=== PATIENT | male | born 1955 | race Caucasian/White ===

== ENCOUNTER → 2017-05-01 | Outpatient (CLI) | payer MEDICARE, OTHER ==
[~2017-05-01] MED LIST: ALBU8HFA4 IH; ATOR20TA86 PO; AUD NEB; ESCI10TA PO; FLUT16H NASAL; HYDR25TA PO; LOSA1TAB42 PO; METF500T4 PO; MULT1CAP32 PO; OMEP20 PO; TAMS0.4C32 PO; TRAZ-144 PO; VITAD1000 PO
[2017-05-01 12:49] VITALS: BP 95/61
== END | disposition home or self-care (01) ==
LOC: SRCNTR 12:32
PROVIDERS: ATTEND Internal Medicine Critical Care Medicine
DX: G47.33 Obstructive sleep apnea (adult) (pediatric) (principal); E66.01 Morbid (severe) obesity due to excess calories; E11.9 Type 2 diabetes mellitus without complications; I10 Essential (primary) hypertension; N40.0 Benign prostatic hyperplasia without lower urinary tract symptoms; J44.9 Chronic obstructive pulmonary disease, unspecified; Z91.19 Patient's noncompliance with other medical treatment and regimen
CPT/HCPCS: G0463

== ENCOUNTER → 2017-10-02 | Outpatient (CLI) | payer MEDICARE, OTHER ==
[~2017-10-02] VITALS: Ht 180.3 cm; Wt 159.5 kg
[~2017-10-02] MED LIST changes: +ASPI81 PO; -ESCI10TA PO; -HYDR25TA PO; -METF500T4 PO; +METF500T6 PO; -TRAZ-144 PO; +TRAZ-219 PO
[2017-10-02 12:42] VITALS: BP 130/86
== END | disposition home or self-care (01) ==
LOC: SRCNTR 12:39
PROVIDERS: ATTEND Internal Medicine Critical Care Medicine
DX: J44.9 Chronic obstructive pulmonary disease, unspecified (principal); I10 Essential (primary) hypertension; E11.9 Type 2 diabetes mellitus without complications; E66.09 Other obesity due to excess calories; G47.33 Obstructive sleep apnea (adult) (pediatric); Z91.19 Patient's noncompliance with other medical treatment and regimen; N40.0 Benign prostatic hyperplasia without lower urinary tract symptoms
CPT/HCPCS: G0463

== ENCOUNTER → 2017-10-09 | Outpatient (CLI) | payer MEDICARE, OTHER ==
[~2017-10-09] VITALS: Ht 180.3 cm; Wt 160.0 kg
[~2017-10-09] MED LIST changes: +BUME1TAB17 PO; +DOCU250C91 PO; +MONT10TA21 PO
[2017-10-09 10:33] VITALS: BP 110/69
[2017-10-09 12:09] LABS: GLUCOMETER DEV NAME(LOC) SHC; GLUCOSE,POINT OF CARE 134 MG/DL (70-110)
== END | disposition home or self-care (01) ==
LOC: SRCNTR 10:29
PROVIDERS: ATTEND Hospitalist
DX: I11.0 Hypertensive heart disease with heart failure (principal); I50.9 Heart failure, unspecified; E11.65 Type 2 diabetes mellitus with hyperglycemia; E78.5 Hyperlipidemia, unspecified; E66.9 Obesity, unspecified; N40.1 Benign prostatic hyperplasia with lower urinary tract symptoms; G47.33 Obstructive sleep apnea (adult) (pediatric)
CPT/HCPCS: 82962; G0463

== ENCOUNTER 2017-10-28 10:42 | Emergency (ER) | payer MEDICARE, OTHER ==
[~2017-10-28] VITALS: Ht 180.3 cm; Wt 161.4 kg
[2017-10-28 11:26] LABS: BASOPHILS % (AUTO) 0.5 % (0.0-2.0); EOSINOPHILS % (AUTO) 0.2 % (1.0-6.0); HEMATOCRIT 39.6 % (41-53); HEMOGLOBIN 13.3 g/dL (13.5-17.5); LYMPHOCYTES # (AUTO) 1.6 K/uL (1.0-4.8); LYMPHOCYTES % (AUTO) 18.7 % (22.0-44.0); MEAN CORPUSCULAR HEMOGLOBIN 29.1 pg (26.0-34.0); MEAN CORPUSCULAR HGB CONC 33.7 G/dL (31.0-37.0); MEAN CORPUSCULAR VOLUME 86 fL (80-100); MONOCYTES # (AUTO) 0.8 K/uL (0.1-1.0); NEUTROPHILS # (AUTO) 6.3 K/uL (1.8-7.7); NEUTROPHILS % (AUTO) 71.6 % (40.0-70.0); PLATELET COUNT (AUTO) 264 K/uL (150-450); RED BLOOD CELL COUNT(AUTO) 4.58 MIL/uL (4.50-5.90); RED CELL DISTRIBUTION WIDTH 14.3 % (11.5-14.5)
[2017-10-28] MEDS ORDERED: ASPIRIN 81 MG CHEWABLE TABLET PO ONE (11:30)
[2017-10-28 11:40] LABS: ANION GAP 10 mmol/L (8-16); CALCIUM, TOTAL 8.6 mg/dL (8.8-10.5); CARBON DIOXIDE 29 mmol/L (22-29); CHLORIDE 101 mmol/L (98-107); CREATININE 0.95 mg/dL (0.60-1.30); GLOMERULAR FILTR. RATE CALC > 60 mL/min (>60); GLUCOSE,RANDOM 107 mg/dL (70-110); POTASSIUM 3.1 mmol/L (3.5-5.1); SODIUM SERUM 140 mmol/L (136-145); UREA NITROGEN, BLOOD 14 mg/dL (7-18)
[2017-10-28 11:43] LABS: ALANINE AMINOTRANSFERASE 20 U/L (12-78); ALBUMIN 3.2 g/dL (3.4-5.0); ALKALINE PHOSPHATASE 76 U/L (46-116); ASPARTATE AMINOTRANSFERASE 10 U/L (15-37); BILIRUBIN,TOTAL 0.5 mg/dL (0.1-1.0)
[2017-10-28 11:58] LABS: CREATINE KINASE, TOTAL 52 U/L (39-308)
[2017-10-28] MEDS ORDERED: ACETAMINOPHEN 500 MG TABLET PO ONE (12:45)
[2017-10-28] MEDS ORDERED: KETOROLAC TROMETHAMINE 30 MG/ML VIAL IM ONE (12:45)
[2017-10-28] MEDS ORDERED: POTASSIUM CHLORIDE 20 MEQ ER TABLET PO ONE (13:45)
[2017-10-28] MEDS ORDERED: ALBUTEROL SULFATE 5 MG/ML 20 ML NEB SOLN [BULK] NEB ONE (13:45)
[2017-10-28] MEDS ORDERED: IPRATROPIUM BROMIDE 0.5 MG/2.5 ML NEB SOLUTION NEB ONE (13:45)
[2017-10-28] MEDS ORDERED: 0.9% SODIUM CHLORIDE 15 ML NEB SOLUTION NEB ONE (14:35)
[2017-10-28 14:55] LABS: GLUCOSE,POINT OF CARE 106 MG/DL (70-110)
[2017-10-28 16:13] VITALS: BP 126/71
== END 2017-10-28 16:18 | disposition home or self-care (01) ==
LOC: EMS 10:43
DX: S20.212A Contusion of left front wall of thorax, initial encounter (principal); I11.0 Hypertensive heart disease with heart failure; I50.9 Heart failure, unspecified; J45.909 Unspecified asthma, uncomplicated; F41.9 Anxiety disorder, unspecified; F32.9 Major depressive disorder, single episode, unspecified; E11.9 Type 2 diabetes mellitus without complications; Z79.4 Long term (current) use of insulin; Z79.82 Long term (current) use of aspirin; Z79.899 Other long term (current) drug therapy; W05.0XXA Fall from non-moving wheelchair, initial encounter; Y93.89 Activity, other specified; Y92.89 Other specified places as the place of occurrence of the external cause; Y99.8 Other external cause status
CPT/HCPCS: 36415; 71045; 71101; 80053; 82550; 82962; 84484; 85025; 93005; 94644; 96372; 99285; J1885

== ENCOUNTER 2017-10-31 19:52 | Emergency (ER) | payer MEDICARE, OTHER ==
[~2017-10-31] VITALS: Ht 180.3 cm; Wt 161.0 kg
[2017-10-31 20:28] LABS: GLUCOSE,POINT OF CARE 96 MG/DL (70-110)
[2017-10-31 22:01] LABS: BASOPHILS % (AUTO) 1.1 % (0.0-2.0); EOSINOPHILS % (AUTO) 0.4 % (1.0-6.0); HEMATOCRIT 39.2 % (41-53); HEMOGLOBIN 13.1 g/dL (13.5-17.5); LYMPHOCYTES # (AUTO) 2.4 K/uL (1.0-4.8); LYMPHOCYTES % (AUTO) 26.8 % (22.0-44.0); MEAN CORPUSCULAR HEMOGLOBIN 29.1 pg (26.0-34.0); MEAN CORPUSCULAR HGB CONC 33.5 G/dL (31.0-37.0); MEAN CORPUSCULAR VOLUME 87 fL (80-100); MONOCYTES # (AUTO) 0.8 K/uL (0.1-1.0); MONOCYTES % (AUTO) 8.3 % (2.0-9.0); NEUTROPHILS # (AUTO) 5.7 K/uL (1.8-7.7); NEUTROPHILS % (AUTO) 63.4 % (40.0-70.0); PLATELET COUNT (AUTO) 282 K/uL (150-450); RED BLOOD CELL COUNT(AUTO) 4.51 MIL/uL (4.50-5.90); RED CELL DISTRIBUTION WIDTH 14.5 % (11.5-14.5)
[2017-10-31 22:10] LABS: CALCIUM, TOTAL 8.3 mg/dL (8.8-10.5); CREATININE 1.53 mg/dL (0.60-1.30); POTASSIUM 3.9 mmol/L (3.5-5.1)
[2017-10-31 22:33] VITALS: BP 138/77
== END 2017-10-31 22:40 | disposition home or self-care (01) ==
LOC: EMS 19:53
DX: R25.2 Cramp and spasm (principal); I11.0 Hypertensive heart disease with heart failure; I50.9 Heart failure, unspecified; E11.9 Type 2 diabetes mellitus without complications; J44.9 Chronic obstructive pulmonary disease, unspecified; F41.9 Anxiety disorder, unspecified; F32.9 Major depressive disorder, single episode, unspecified; Z79.84 Long term (current) use of oral hypoglycemic drugs; Z79.82 Long term (current) use of aspirin
CPT/HCPCS: 99284

== ENCOUNTER → 2017-12-18 | Outpatient (CLI) | payer MEDICARE, OTHER ==
[~2017-12-18] VITALS: Ht 180.3 cm; Wt 158.0 kg
[~2017-12-18] MED LIST changes: -ATOR20TA86 PO; -BUME1TAB17 PO; -DOCU250C91 PO; +METF-960 PO; -METF500T6 PO; -MONT10TA21 PO; -TRAZ-219 PO
[2017-12-18 11:45] VITALS: BP 139/78
[2017-12-18 15:59] LABS: GLUCOMETER DEV NAME(LOC) SHC; GLUCOSE,POINT OF CARE 114 MG/DL (70-110)
== END | disposition home or self-care (01) ==
LOC: SRCNTR 11:12
PROVIDERS: ATTEND Hospitalist
DX: E11.65 Type 2 diabetes mellitus with hyperglycemia (principal); I10 Essential (primary) hypertension; E66.9 Obesity, unspecified; E78.5 Hyperlipidemia, unspecified; N40.0 Benign prostatic hyperplasia without lower urinary tract symptoms; J45.909 Unspecified asthma, uncomplicated; G47.33 Obstructive sleep apnea (adult) (pediatric)
CPT/HCPCS: 82962; G0463

== ENCOUNTER → 2018-03-10 | Outpatient (CLI) | payer MEDICARE, OTHER ==
[2018-03-10 13:13] VITALS: BP 111/76
== END | disposition home or self-care (01) ==
LOC: SRCNTR 12:51
PROVIDERS: ATTEND Internal Medicine Critical Care Medicine
DX: G47.33 Obstructive sleep apnea (adult) (pediatric) (principal); J44.1 Chronic obstructive pulmonary disease with (acute) exacerbation; E11.9 Type 2 diabetes mellitus without complications; E66.01 Morbid (severe) obesity due to excess calories; J94.8 Other specified pleural conditions; N40.0 Benign prostatic hyperplasia without lower urinary tract symptoms; I11.0 Hypertensive heart disease with heart failure; I50.30 Unspecified diastolic (congestive) heart failure; Z91.19 Patient's noncompliance with other medical treatment and regimen
CPT/HCPCS: G0463

== ENCOUNTER → 2018-08-04 | Outpatient (CLI) | payer MEDICARE, OTHER | END | disposition home or self-care (01) | LOC: RESP 11:10 | PROVIDERS: ATTEND Internal Medicine Critical Care Medicine | DX: J44.1 Chronic obstructive pulmonary disease with (acute) exacerbation (principal); I51.7 Cardiomegaly; I70.0 Atherosclerosis of aorta ==

== ENCOUNTER → 2019-04-29 | Outpatient (CLI) | payer MEDICARE, OTHER ==
[~2019-04-29] VITALS: Ht 172.7 cm; Wt 155.0 kg
[~2019-04-29] MED LIST changes: +ASPI-728 PO; -ASPI81 PO; +CHOL100018 PO; +TAMS-13 PO; -TAMS0.4C32 PO; -VITAD1000 PO
[2019-04-29 11:13] VITALS: BP 114/78
== END | disposition home or self-care (01) ==
LOC: SRCNTR 11:09
PROVIDERS: ATTEND Internal Medicine Critical Care Medicine
DX: F32.9 Major depressive disorder, single episode, unspecified (principal); E11.9 Type 2 diabetes mellitus without complications; I10 Essential (primary) hypertension; J45.909 Unspecified asthma, uncomplicated; G47.33 Obstructive sleep apnea (adult) (pediatric); E66.01 Morbid (severe) obesity due to excess calories; R69 Illness, unspecified
CPT/HCPCS: G0463

== ENCOUNTER → 2019-10-26 | Outpatient (CLI) | payer MEDICARE, OTHER ==
[~2019-10-26] VITALS: Ht 180.3 cm; Wt 163.0 kg
[~2019-10-26] MED LIST changes: +BUDE10.2 IH; +GABA-1181 PO
[2019-10-26 11:32] VITALS: BP 132/72
== END | disposition home or self-care (01) ==
LOC: SRCNTR 11:24
PROVIDERS: ATTEND Internal Medicine Critical Care Medicine
DX: J43.9 Emphysema, unspecified (principal); I50.9 Heart failure, unspecified; E11.9 Type 2 diabetes mellitus without complications; I10 Essential (primary) hypertension; G47.33 Obstructive sleep apnea (adult) (pediatric)
CPT/HCPCS: G0463; Z7500

== ENCOUNTER → 2021-01-08 | Outpatient (CLI) | payer MEDICARE, OTHER ==
[~2021-01-08] MED LIST changes: -ALBU8HFA4 IH; +ASPI-1450 PO; -ASPI-728 PO; -FLUT16H NASAL; -METF-960 PO; -TAMS-13 PO
== END | disposition home or self-care (01) ==
LOC: RADPV 13:05
PROVIDERS: ATTEND Internal Medicine Critical Care Medicine
DX: I51.7 Cardiomegaly (principal); J44.9 Chronic obstructive pulmonary disease, unspecified
CPT/HCPCS: 71046

== ENCOUNTER → 2021-01-18 | Outpatient (CLI) | payer MEDICARE, OTHER | END | disposition home or self-care (01) | LOC: SRCNTR 13:55 | PROVIDERS: ATTEND Internal Medicine Critical Care Medicine | DX: G47.33 Obstructive sleep apnea (adult) (pediatric) (principal); J44.9 Chronic obstructive pulmonary disease, unspecified; E11.9 Type 2 diabetes mellitus without complications; I10 Essential (primary) hypertension; E66.01 Morbid (severe) obesity due to excess calories; J92.9 Pleural plaque without asbestos; Z91.19 Patient's noncompliance with other medical treatment and regimen | CPT/HCPCS: Q3014 ==

== ENCOUNTER → 2021-02-20 | Outpatient (CLI) | payer MEDICARE, OTHER ==
[2021-02-20 11:58] VITALS: BP 124/87
== END | disposition home or self-care (01) ==
LOC: SRCNTR 11:15
PROVIDERS: ATTEND Internal Medicine Critical Care Medicine
DX: G47.33 Obstructive sleep apnea (adult) (pediatric) (principal); J45.909 Unspecified asthma, uncomplicated; J92.9 Pleural plaque without asbestos; E11.9 Type 2 diabetes mellitus without complications; I10 Essential (primary) hypertension; E66.01 Morbid (severe) obesity due to excess calories; Z91.19 Patient's noncompliance with other medical treatment and regimen
CPT/HCPCS: G0463; Z7500

== ENCOUNTER → 2021-05-28 | Outpatient (CLI) | payer MEDICARE, OTHER ==
[2021-05-28 09:58] VITALS: BP 123/73
== END | disposition home or self-care (01) ==
LOC: SRCNTR 09:11
PROVIDERS: ATTEND Internal Medicine Critical Care Medicine
DX: I10 Essential (primary) hypertension (principal); J44.9 Chronic obstructive pulmonary disease, unspecified; E11.9 Type 2 diabetes mellitus without complications; G47.33 Obstructive sleep apnea (adult) (pediatric); N40.0 Benign prostatic hyperplasia without lower urinary tract symptoms; J30.2 Other seasonal allergic rhinitis; E66.01 Morbid (severe) obesity due to excess calories
CPT/HCPCS: G0463; Z7500

== ENCOUNTER → 2021-06-15 | Outpatient (CLI) | payer MEDICARE, OTHER ==
[2021-06-15 13:02] VITALS: BP 98/60
== END | disposition home or self-care (01) ==
LOC: SRCNTR 12:40
PROVIDERS: ATTEND Internal Medicine Critical Care Medicine
DX: I10 Essential (primary) hypertension (principal); E11.9 Type 2 diabetes mellitus without complications; G47.33 Obstructive sleep apnea (adult) (pediatric); N40.0 Benign prostatic hyperplasia without lower urinary tract symptoms; J30.2 Other seasonal allergic rhinitis; J92.9 Pleural plaque without asbestos; E66.01 Morbid (severe) obesity due to excess calories
CPT/HCPCS: G0463

== ENCOUNTER → 2021-09-07 | Outpatient (CLI) | payer MEDICARE, OTHER ==
[~2021-09-07] VITALS: Ht 180.3 cm; Wt 163.0 kg
[2021-09-07 09:17] VITALS: BP 98/76
== END | disposition home or self-care (01) ==
LOC: SRCNTR 08:37
PROVIDERS: ATTEND Internal Medicine Critical Care Medicine
DX: I10 Essential (primary) hypertension (principal); E11.9 Type 2 diabetes mellitus without complications; G47.33 Obstructive sleep apnea (adult) (pediatric); E66.01 Morbid (severe) obesity due to excess calories; J44.9 Chronic obstructive pulmonary disease, unspecified; N40.0 Benign prostatic hyperplasia without lower urinary tract symptoms; J30.2 Other seasonal allergic rhinitis; J90 Pleural effusion, not elsewhere classified
CPT/HCPCS: G0463

== ENCOUNTER → 2021-12-20 | Outpatient (CLI) | payer MEDICARE, OTHER ==
[2021-12-20 14:05] VITALS: BP 138/88
== END | disposition home or self-care (01) ==
LOC: SRCNTR 11:10
PROVIDERS: ATTEND Internal Medicine Critical Care Medicine
DX: I10 Essential (primary) hypertension (principal); Z09 Encounter for follow-up examination after completed treatment for conditions other than malignant neoplasm; E11.9 Type 2 diabetes mellitus without complications; G47.33 Obstructive sleep apnea (adult) (pediatric); E66.01 Morbid (severe) obesity due to excess calories; N40.0 Benign prostatic hyperplasia without lower urinary tract symptoms; J30.9 Allergic rhinitis, unspecified; J44.9 Chronic obstructive pulmonary disease, unspecified; J92.9 Pleural plaque without asbestos
CPT/HCPCS: G0463

== ENCOUNTER → 2022-02-05 | Outpatient (CLI) | payer MEDICARE, OTHER ==
[~2022-02-05] VITALS: Ht 180.3 cm; Wt 168.0 kg
[2022-02-05 10:00] VITALS: BP 129/86
== END | disposition home or self-care (01) ==
LOC: SRCNTR 09:47
PROVIDERS: ATTEND Internal Medicine Pulmonary Disease
DX: I10 Essential (primary) hypertension (principal); E11.9 Type 2 diabetes mellitus without complications; G47.33 Obstructive sleep apnea (adult) (pediatric); N40.0 Benign prostatic hyperplasia without lower urinary tract symptoms; E66.01 Morbid (severe) obesity due to excess calories; J30.2 Other seasonal allergic rhinitis; J44.9 Chronic obstructive pulmonary disease, unspecified; J92.9 Pleural plaque without asbestos
CPT/HCPCS: G0463